=== PATIENT | female | born 1995 | race Two or more races ===

== ENCOUNTER 2017-03-22 07:48 | Emergency (ER) | payer OTHER ==
[2017-03-22 08:02] VITALS: BP 123/60
--- NOTE | 2017-03-22 08:10 | UC ---
Throat Pain/Nasal Farhat HPI - HPI Summary HPI Summary: SORE THROAT X 2 DAYS, + NASAL CONGESTION, COUGH, BODY ACHES, NO FEVER, NO RUNNY NOSE - History of Current Complaint Chief Complaint: UCGeneralIllness Stated Complaint: PERSONAL Time Seen by Provider: 03/22/17 08:00 Hx Obtained From: Patient Hx Last Menstrual Period: 07/31/16 ?: Yes Onset/Duration: Gradual Onset, Lasting Days - 2, Still Present Severity: Moderate Cough: Nonproductive Associated Signs & Symptoms: Negative: Dysphagia, FB Sensation, Drooling, Wheezing, Hoarseness, Sinus Discomfort, Nasal Discharge, Fever, Vomiting, Rash - Allergies/Home Medications Allergies/Adverse Reactions: Allergies Allergy/AdvReac Type Severity Reaction Status Date / Time Penicillins [PCN] Allergy Intermediate Hives Verified 03/22/17 07:57 Home Medications: Home Medications Vitamin TAB* 1 tab PO DAILY 03/22/17 [History Confirmed 03/22/17] PMH/Surg Hx/FS Hx/Imm Hx Previously Healthy: Yes - Surgical History Surgical History: Yes Surgery Procedure, Year, and Place: colonoscopy & endoscopy 2013 - Family History Known Family History: Negative: Diabetes - Social History Alcohol Use: None Substance Use Type: None Smoking Status (MU): Never Smoked Tobacco Review of Systems Constitutional: Negative Skin: Negative Eyes: Negative ENT: Sore Throat Respiratory: Cough Cardiovascular: Negative Gastrointestinal: Negative All Other Systems Reviewed And Are Negative: Yes Physical Exam Triage Information Reviewed: Yes Appearance: Well-Appearing, No Pain Distress, Well-Nourished Vital Signs: Initial Vital Signs Temp 98.3 F 03/22/17 07:58 Pulse 113 03/22/17 07:58 Resp 16 03/22/17 07:58 BP 123/60 03/22/17 07:58 Pulse Ox 99 03/22/17 07:58 Vital Signs Reviewed: Yes Eyes: Positive: Conjunctiva Clear ENT: Positive: Normal ENT inspection, Pharyngeal erythema, Nasal congestion, TMs normal. Negative: Nasal drainage Neck: Positive: Supple, Nontender, No Lymphadenopathy Respiratory: Positive: Chest non-tender, Lungs clear, Normal breath sounds Cardiovascular: Positive: No Murmur, Tachycardia Abdominal Exam: Normal Abdomen Description: Positive: Nontender, Soft Bowel Sounds: Positive: Present Throat Pain/Nasal Course/Dx - Differential Dx/Diagnosis Provider Diagnoses: PHARYNGITIS Discharge - Discharge Plan Condition: Stable Disposition: HOME Patient Education Materials: Pharyngitis (ED) Forms: *Work Release Referrals: No Primary Care Phys,NOPCP [Primary Care Provider] - If Needed
== END 2017-03-22 08:24 | disposition home or self-care (01) ==
LOC: UCCORT 07:48
DX: J02.9 Acute pharyngitis, unspecified (principal); Z88.0 Allergy status to penicillin
CPT/HCPCS: 87651; 99211; G0463